=== PATIENT | male | born 1945 | race Hispanic/Latino ===

== ENCOUNTER 2017-09-28 15:10 | Inpatient (IN) | payer MEDICARE ==
[2017-09-28] MEDS ORDERED: TYLENOL PO PRN (15:18)
[2017-09-28] MEDS ORDERED: MILK OF MAGNESIA PO PRN (15:18)
[2017-09-28] MEDS ORDERED: DULCOLAX PR PRN (15:18)
[2017-09-28] MEDS ORDERED: ZOFRAN IV PRN (15:18)
[2017-09-28 18:17] LABS: Basophils % (Auto) 0.2 % (0.0-1.8); Eosinophils % (Auto) 0.1 % (0.0-4.3); Hemoglobin 14.7 gm/dl (11.8-15.2); Mean Corpuscular HGB Conc 34 % (32-34); Mean Corpuscular Hemoglobin 31 pg (28-32); Mean Corpuscular Volume 92 fl (84-94); Platelet Count 187 K/mm3 (140-440); Red Blood Count 4.67 M/mm3 (3.65-5.03); Red Cell Distribution Width 14.5 % (13.2-15.2); White Blood Count 8.9 K/mm3 (4.5-11.0)
[2017-09-28 18:26] LABS: INR 2.63 (0.87-1.13)
[2017-09-28 18:38] LABS: Calcium 8.4 mg/dL (8.4-10.2); Chloride 89.1 mmol/L (98-107); Magnesium 2.2 mg/dL (1.7-2.3); Potassium 5.3 mmol/L (3.6-5.0)
[2017-09-28 19:29] LABS: INR 2.58 (0.87-1.13)
[2017-09-28] MEDS ORDERED: COUMADIN PO SCH (20:00)
[2017-09-28] MEDS ORDERED: BETAPACE PO SCH (22:00)
[2017-09-28] MEDS: TOPROL XL PO SCH (23:02)
--- NOTE | 2017-09-29 02:21 | XRay Report ---
FINAL REPORT PROCEDURE: XR CHEST ROUTINE 2V TECHNIQUE: PA and lateral chest radiographs were obtained. CPT 18515 HISTORY: CHF COMPARISON: No prior studies are available for comparison. FINDINGS: Heart: Normal. Mediastinum/Vessels: Normal. Lungs/Pleural space: There are no infiltrates, effusions or pneumothoraces.. Bony thorax: No acute osseous abnormality. Other: IMPRESSION: There is no pulmonary edema. There is no acute cardiopulmonary abnormality..
[2017-09-29 05:41] LABS: Calcium 8.4 mg/dL (8.4-10.2); Chloride 88.6 mmol/L (98-107); INR 2.89 (0.87-1.13); Potassium 5.5 mmol/L (3.6-5.0)
[2017-09-29] MEDS ORDERED: LASIX IV SCH (06:00)
[2017-09-29] MEDS ORDERED: VERSED ONE (08:38)
[2017-09-29] MEDS ORDERED: DIPRIVAN 10 MG/ML IV ONE ×2 (08:38)
[2017-09-29] MEDS ORDERED: HURRICAINE ONE 20% TOPICAL SPRAY MM (08:44)
[2017-09-29] MEDS ORDERED: NACL 0.9% 1000 ML 1,000 ML ONE (09:01)
--- NOTE | 2017-09-29 09:19 | Anesthesia Consultation ---
Anesthesia Consult and Med Hx Date of service: 09/29/17 - Airway Anesthetic Teeth Evaluation: Good ROM Head & Neck: Adequate Mental/Hyoid Distance: Adequate Mallampati Class: Class II Intubation Access Assessment: Probably Good - Pulmonary Exam CTA: Yes - Cardiac Exam Cardiac Exam: RRR - Pre-Operative Health Status ASA Pre-Surgery Classification: ASA3 Proposed Anesthetic Plan: General - Pulmonary Hx Smoking: Yes (former) Hx Sleep Apnea: Yes - Cardiovascular System Hx Hypertension: Yes (EF 35% 2011) Hx Coronary Artery Disease: Yes Hx Heart Attack/AMI: Yes (X2) Hx Percutaneous Transluminal Coronary Angioplasty (PTCA): Yes (stents x 2) Hx Cardia Arrhythmia: Yes (AFIB) - Central Nervous System Hx Psychiatric Problems: No - Gastrointestinal Hx Gastroesophageal Reflux Disease: Yes - Endocrine Hx Renal Disease: Yes (hyponatremia, hyperkalemia) - Other Systems Hx Cancer: Yes (Right kidney tumor, S/P removal of tumor)
--- NOTE | 2017-09-29 09:21 | Anesthesia Day of Surgery ---
Anesthesia Day of Surgery - Day of Surgery Patient Examined: Yes Patient H&P Reviewed: Yes Patient is NPO: Yes
--- NOTE | 2017-09-29 09:32 | Progress Note ---
Assessment and Plan Acute on chronic systolic heart failure Ischemic cardiomyopathy, LVEF 20-25% CAD s/p remote PCI x 2 Persistent atrial fibrillation s/p IRON guided cardioversion Acute renal failure Hyponatremia Hyperkalemia Systemic Hypertension Recommendations: Decrease sotalol to 80 mg po q24 hour due to creatinine clearance Continue warfarin Continue IV diuresis Discontinue potassium replacement Monitor electrolytes Obtain renal consultation for his acute renal failure Anticipate discharge in am if sodium and potassium are doing better Subjective Date of service: 09/29/17 Principal diagnosis: Afib Interval history: Patient underwent a IRON guided cardioversion without complications Objective Vital Signs Temp Pulse Pulse Resp BP Pulse Ox 09/29/17 08:15 97.6 F 74 18 113/80 99 09/29/17 04:01 98.4 F 65 18 119/74 97 09/28/17 23:48 98.0 F 57 L 18 122/85 98 09/28/17 23:02 68 113/73 09/28/17 23:01 68 113/73 09/28/17 20:45 132 H 20 98 09/28/17 20:21 124 H 09/28/17 19:39 98.3 F 68 18 113/73 96 09/28/17 17:36 97.8 F 72 22 126/90 97 - Physical Examination General: Appears Well Neck: Positive: neck supple Cardiac: Positive: irregularly irregular Lungs: Positive: Rales Abdomen: Positive: Soft Extremities: Absent: edema - Labs and Meds Coagulation 09/28/17 09/28/17 09/29/17 Range/Units 17:16 18:40 04:42 PT 29.7 H 29.2 H 32.0 H (12.2-14.9) Sec. INR 2.63 H 2.58 H 2.89 H (0.87-1.13) CBC 09/28/17 Range/Units 17:16 WBC 8.9 (4.5-11.0) K/mm3 RBC 4.67 (3.65-5.03) M/mm3 Hgb 14.7 (11.8-15.2) gm/dl Hct 43.0 (35.5-45.6) % Plt Count 187 (140-440) K/mm3 Lymph # 1.2 (1.2-5.4) K/mm3 [place] # 0.9 H (0.0-0.8) K/mm3 Eos # 0.0 (0.0-0.4) K/mm3 Baso # 0.0 (0.0-0.1) K/mm3 Comprehensive Metabolic Panel 09/28/17 09/29/17 Range/Units 17:16 04:42 Sodium 131 L 128 L (137-145) mmol/L Potassium 5.3 H 5.5 H (3.6-5.0) mmol/L Chloride 89.1 L 88.6 L (98-107) mmol/L Carbon Dioxide 26 27 (22-30) mmol/L BUN 36 H 35 H (9-20) mg/dL Creatinine 1.7 H 1.7 H (0.8-1.5) mg/dL Glucose 88 85 (75-100) mg/dL Calcium 8.4 8.4 (8.4-10.2) mg/dL
[2017-09-29] MEDS ORDERED: PLAVIX PO SCH (10:00)
[2017-09-29] MEDS ORDERED: NON-FORMULARY (Ranitidine Hcl [Zantac 150 Mg Tab] 150 MG) PO SCH (10:00)
[2017-09-29] MEDS ORDERED: K-DUR PO SCH (10:00)
[2017-09-29] MEDS ORDERED: ZESTRIL PO SCH (10:00)
[2017-09-29] MEDS ORDERED: HURRICAINE ONE 20% TOPICAL SPRAY MM NR (10:00)
[2017-09-29] MEDS ORDERED: LASIX PO SCH (10:00)
[2017-09-29] MEDS ORDERED: NON-FORMULARY (Potassium Chloride [Potassium Chloride] 10 MEQ) PO SCH (10:00)
--- NOTE | 2017-09-29 10:15 | Procedure Note ---
INDICATION: Persistent atrial fibrillation with rapid ventricular rate. DESCRIPTION OF PROCEDURE: After obtaining written consent and the patient was deeply sedated with IV propofol in the presence of anesthesia staff. A IRON was performed excluding the presence of left atrial appendage thrombus. A 360 joule synchronized shock was administered with successful cardioversion from atrial fibrillation into normal sinus rhythm. No complications occurred during the procedure. IMPRESSION: Successful cardioversion from atrial fibrillation into normal sinus rhythm. RECOMMENDATION: Continue sotalol and warfarin. JOB# [id number] NIK/KIKE
[2017-09-29] MEDS ORDERED: NACL 0.9% 1000 ML 1,000 ML IV SCH (11:00)
[2017-09-29] MEDS: BETAPACE PO SCH (11:22)
[2017-09-29] MEDS: BABY ASPIRIN PO SCH (11:22)
[2017-09-29] MEDS: ZETIA PO SCH (11:23)
[2017-09-29] MEDS: PEPCID PO SCH (11:23)
[2017-09-29] MEDS ORDERED: D50W (25GM) Vial IV ONE (13:20)
[2017-09-29] MEDS ORDERED: LASIX IV NR (13:22)
--- NOTE | 2017-09-29 13:25 | Consultation ---
History of Present Illness - Reason for Consult Consult date: 09/29/17 acute renal failure, chronic renal failure - History of Present Illness patient with h/o HTN, CHF and Afib was admitted by Dr Bernardo for IRON with cardioversion, patient was noted to have abnromal kidney function and hyperkalemia and renal consult was requested. prior to today he was never told he has kidney disease, he denies NSAIDS he was given doxycycline course last week for bronchitis. he also mentioned for the last week he has been having difficulty to void. he has h/o partial nephroctomy [place] kidney tumor but he does not remember which kidney Past History Past Medical History: other (CHF, kidney tumor.) Medications and Allergies Allergies Allergy/AdvReac Type Severity Reaction Status Date / Time [id number]-Vni Reductase Allergy Unknown Verified 09/28/17 15:29 Inhibitor Home Medications Medication Instructions Recorded Confirmed Last Taken Type Clopidogrel [Plavix] 75 mg PO QDAY 09/28/17 09/28/17 Unknown History Ezetimibe [Zetia] 10 mg PO QDAY 09/28/17 09/28/17 Unknown History Furosemide [Lasix TAB] 40 mg PO QDAY 09/28/17 09/28/17 Unknown History Metoprolol Succinate [Toprol Xl] 25 mg PO QDAY 09/28/17 09/28/17 Unknown History Potassium Chloride 10 meq PO QDAY 09/28/17 09/28/17 Unknown History Ranitidine HCl [Zantac 150 MG TAB] 150 mg PO QDAY 09/28/17 09/28/17 Unknown History Warfarin Sodium [Coumadin] 5 mg PO QDAY 09/28/17 09/28/17 Unknown History Active Meds: Active Medications Acetaminophen (Tylenol) 650 mg PO Q4H PRN PRN Reason: Pain MILD(1-3)/Fever >100.5/THORPE Aspirin (Baby Aspirin) 81 mg PO QDAY [facility] Last Admin: 09/29/17 11:22 Dose: Not Given Benzocaine (Hurricaine One 20% Topical [place]) 3 spray MM PREOP NR Stop: 09/29/17 23:59 Last Admin: 09/29/17 09:03 Dose: 3 spray Bisacodyl (Dulcolax) 10 mg DC QDAY PRN PRN Reason: Constipation unrelieved by MOM Ezetimibe (Zetia) 10 mg PO QDAY [facility] Last Admin: 12/22/17 11:23 Dose: Not Given Famotidine (Pepcid) 10 mg PO DAILY [facility] Last Admin: 09/29/17 11:23 Dose: Not Given Furosemide (Lasix) 40 mg PO QDAY [facility] Last Admin: 09/29/17 11:22 Dose: Not Given Sodium Chloride (Nacl 0.9% 1000 Ml) 1,000 mls @ 42 mls/hr IV DIRECT [facility] Last Admin: 09/29/17 09:03 Dose: 42 mls/hr Lisinopril (Zestril) 20 mg PO QDAY [facility] Last Admin: 09/29/17 11:23 Dose: Not Given Magnesium Hydroxide (Milk Of Magnesia) 30 ml PO Q4H PRN PRN Reason: Constipation Metoprolol Succinate (Toprol Xl) 25 mg PO QDAY@2200 [facility] Last Admin: 09/28/17 23:02 Dose: 25 mg Ondansetron HCl (Zofran) 4 mg IV Q8H PRN PRN Reason: N/V unrelieved by Reglan Sotalol HCl (Betapace) 80 mg PO Q24H [facility] Last Admin: 09/29/17 11:22 Dose: Not Given Warfarin Sodium (Coumadin) 5 mg PO MoWeFr@1700 [facility] PRN Reason: Protocol Warfarin Sodium (Coumadin Pharmacy To Dose) 1 each PO PKCONSULT [facility] PRN Reason: Protocol Warfarin Sodium (Coumadin) 2.5 mg PO SuTuThSa@1700 [facility] Last Admin: 09/28/17 20:40 Dose: 2.5 mg Review of Systems All systems: negative (weakness, SOB) Exam - Vital Signs Vital signs: Vital Signs Temp Pulse Resp BP Pulse Ox 97.8 F 72 22 126/90 97 09/28/17 17:36 09/28/17 17:36 09/28/17 17:36 09/28/17 17:36 09/28/17 17:36 - General Appearance General appearance: well-developed, well-nourished, appears stated age EENT: ATNC, PERRL, mucous membranes moist Neck: Present: neck supple Respiratory: Clear to Ascultation Heart: regular, S1S2 Gastrointestinal: Present: normoactive bowel sounds. Absent: tenderness, distended Integumentary: no rash, warm and dry Neurologic: no focal deficit, no asterixis, alert and oriented x3 Musculoskeletal: Present: other (trace pitting edema in BLE) Psychiatric: mood/affect appropriate, cooperative Results - Lab Results 09/28/17 17:16 09/29/17 04:42 Most recent lab results Calcium 8.4 mg/dL (8.4-10.2) 09/29/17 04:42 Magnesium 2.20 mg/dL (1.7-2.3) 09/28/17 17:16 Assessment and Plan Acute renal failure unknown baseline, worsening kidney function could be secondary cardiorenal syndrome (EF ~25%) AIN due to recent antibiotic use and urinary retention will order renla US with post void residual will order urine lytes, protein and eos. secondary GN work up depends on urine studies results renal dose med strict I&O renal diet Hyperkalemia Kcl supplement was stopped will switch oral lasix to IV will hold lisinopril (if Ok with cardiology) will order Iv insulin with D50W and repeat BMP ~ 1800 Afib with RVR s/p IRON and cardiversion on Sotalol Acute on chronic CHF IV lasix as above will hold lisinopril for hypotension, worsening kidney function and hypokalemia per cardiology
[2017-09-29] MEDS ORDERED: D50W (25GM) Syringe IV NR (14:00)
[2017-09-29] MEDS ORDERED: COUMADIN PO SCH (17:00)
--- NOTE | 2017-09-29 18:33 | Ultrasound Report ---
FINAL REPORT EXAM: US BLADDER RESIDUAL HISTORY: DIFFICULTY VOIDING TECHNIQUE: Ultrasound examination of the urinary bladder PRIORS: Renal ultrasound 09/29/2017 FINDINGS: No focal urinary bladder lesion. Prevoid volume is 325 cc and postvoid volume is 76 cc. IMPRESSION: Urinary bladder postvoid residual is 76 cc
[2017-09-29 18:55] LABS: Calcium 8.2 mg/dL (8.4-10.2); Chloride 89.7 mmol/L (98-107); Potassium 5.3 mmol/L (3.6-5.0)
[2017-09-29 19:24] LABS: Bilirubin,Urine NEG (Negative); Blood,Urine NEG (Negative); Ketones,Urine NEG (Negative); Leukocyte Esterase,Urine NEG (Negative); Mucus,Urine FEW /HPF; Nitrite,Urine NEG (Negative); Protein,Urine <15 mg/dL mg/dL (Negative); Urobilinogen,Urine < 2.0 mg/dL (<2.0); WBC,Urine < 1.0 /HPF (0.0-6.0)
[2017-09-29 19:28] LABS: Sodium, Urine 23 mmol/L
[2017-09-29] MEDS: TOPROL XL PO SCH (22:17)
[2017-09-30 00:51] LABS: Calcium 8.3 mg/dL (8.4-10.2); Chloride 92.7 mmol/L (98-107); Potassium 5.4 mmol/L (3.6-5.0)
[2017-09-30 06:04] LABS: Basophils % (Auto) 0.2 % (0.0-1.8); Eosinophils % (Auto) 0.8 % (0.0-4.3); Hematocrit 43.5 % (35.5-45.6); Hemoglobin 14.5 gm/dl (11.8-15.2); Mean Corpuscular HGB Conc 33 % (32-34); Mean Corpuscular Hemoglobin 31 pg (28-32); Mean Corpuscular Volume 93 fl (84-94); Platelet Count 165 K/mm3 (140-440); Red Blood Count 4.71 M/mm3 (3.65-5.03); Red Cell Distribution Width 14.9 % (13.2-15.2); White Blood Count 9.4 K/mm3 (4.5-11.0)
[2017-09-30 06:24] LABS: Calcium 7.9 mg/dL (8.4-10.2); Chloride 92.5 mmol/L (98-107); Phosphorous 3.6 mg/dL (2.5-4.5)
[2017-09-30 06:30] LABS: INR 5.46 (0.87-1.13)
[2017-09-30 06:38] LABS: Potassium 5.6 mmol/L (3.6-5.0)
[2017-09-30 07:46] LABS: INR 3.39 (0.87-1.13)
--- NOTE | 2017-09-30 09:30 | Progress Note ---
Assessment and Plan Acute on chronic systolic heart failure improved class II symptoms and Ischemic cardiomyopathy, LVEF 20-25% CAD s/p remote PCI x 2 Persistent atrial fibrillation s/p IRON guided cardioversion Acute renal failure Hyponatremia Hyperkalemia persistent patient currently not on any LEE inhibitor Systemic Hypertension Recommendations: Continue sotalol at 80 mg po q24 hour due to creatinine clearance Continue warfarin Continue IV diuresis Monitor electrolytes Obtain renal consultation for his acute renal failure DC home once potassium is corrected Subjective Date of service: 09/30/17 Principal diagnosis: Afib Interval history: No eventgs overnight Remains in NSR Objective Vital Signs Temp Pulse Pulse Pulse Pulse Resp Resp 09/30/17 08:34 98.4 F 69 20 09/30/17 07:51 72 09/30/17 04:21 97.9 F 63 18 09/30/17 00:08 97.8 F 68 18 09/29/17 22:17 64 09/29/17 22:15 68 68 20 09/29/17 19:56 97.2 F L 64 18 09/29/17 19:54 66 09/29/17 16:55 97.4 F L 67 18 09/29/17 11:47 97.3 F L 63 18 09/29/17 11:23 74 09/29/17 11:22 74 09/29/17 10:00 74 18 09/29/17 09:50 56 L 19 09/29/17 09:35 56 L 21 BP BP BP Pulse Ox Pulse Ox 09/30/17 08:34 123/73 95 09/30/17 07:51 09/30/17 04:21 127/69 95 09/30/17 00:08 121/76 97 09/29/17 22:17 117/67 09/29/17 22:15 09/29/17 19:56 117/67 93 09/29/17 19:54 09/29/17 16:55 120/68 97 09/29/17 11:47 126/83 96 09/29/17 11:23 113/80 09/29/17 11:22 113/80 09/29/17 10:00 99 09/29/17 09:50 105/58 97 09/29/17 09:35 105/64 98 - Physical Examination Narrative exam: Vitals reviewed , moderately obese GEN: No acute distress noted HEENT: Carotids 2+ NECK: Supple CVS: S1 and S2 heard no significant murmur or gallop noted LUNGS/CHEST: Normal auscultation ABD: Soft nontender Extremities: No edema noted normal color NEURO: Alert moves all all 4 extremities PSY: Stable General: Appears Well Neck: Positive: neck supple Abdomen: Positive: Soft Extremities: Absent: edema - Labs and Meds Coagulation 09/30/17 09/30/17 Range/Units 04:00 06:57 PT 53.3 H 36.4 H (12.2-14.9) Sec. INR 5.46 H* 3.39 H (0.87-1.13) CBC 09/30/17 Range/Units 04:07 WBC 9.4 (4.5-11.0) K/mm3 RBC 4.71 (3.65-5.03) M/mm3 Hgb 14.5 (11.8-15.2) gm/dl Hct 43.5 (35.5-45.6) % Plt Count 165 (140-440) K/mm3 Lymph # 1.4 (1.2-5.4) K/mm3 [place] # 0.9 H (0.0-0.8) K/mm3 Eos # 0.1 (0.0-0.4) K/mm3 Baso # 0.0 (0.0-0.1) K/mm3 Comprehensive Metabolic Panel 09/29/17 09/30/17 09/30/17 Range/Units 17:38 00:08 04:07 Sodium 132 L 134 L 131 L (137-145) mmol/L Potassium 5.3 H 5.4 H 5.6 H (3.6-5.0) mmol/L Chloride 89.7 L 92.7 L 92.5 L (98-107) mmol/L Carbon Dioxide 24 29 25 (22-30) mmol/L BUN 34 H 33 H 32 H (9-20) mg/dL Creatinine 1.5 1.7 H 1.3 (0.8-1.5) mg/dL Glucose 129 H 87 64 L (75-100) mg/dL Calcium 8.2 L 8.3 L 7.9 L (8.4-10.2) mg/dL
[2017-09-30] MEDS: BETAPACE PO SCH (10:23)
[2017-09-30] MEDS: ZETIA PO SCH (10:23)
[2017-09-30] MEDS: PEPCID PO SCH (10:23)
[2017-09-30] MEDS: BABY ASPIRIN PO SCH (10:23)
[2017-09-30] MEDS ORDERED: COUMADIN NO DOSE TODAY PO ONE (17:00)
--- NOTE | 2017-09-30 17:17 | Progress Note ---
Assessment and Plan - Patient Problems (1) Atrial fibrillation Current Visit: Yes Status: Acute Plan to address problem: Cardiology on board, s/p IRON cardioversion, now sinus rhythm, on sotalol and warfarin (2) Acute renal failure (ARF) Current Visit: Yes Status: Acute Plan to address problem: Renal function reviewed, SCr level decreased to 1.3 today, yesterday's SCr level was 1.5 Renally dose medications Ordered insulin 5 units IV, 2 amps D50, modified cardiac diet to also reflect low potassium content, repeat potassium level at 2100 Obtain daily weight Renal ultrasound pending Lisinopril on hold Strict intake and output Finch Catheter: No Renal plan discussed with Dr Lo Continue supportive therapy (3) Hyperkalemia Current Visit: Yes Status: Acute Plan to address problem: Ordered Insulin 5 units IV, 2 amps of D50 Modified cardiac diet to also reflect low potassium content Repeat potassium level at 2100 (4) Acute on chronic congestive heart failure Current Visit: Yes Status: Acute Plan to address problem: Cardiology on board, LVEF 20-25% Lisinopril on hold for now As per cardiology management Subjective Date of service: 09/30/17 Principal diagnosis: Afib Interval history: Patient reports feeling ok at this time, no family at bedside, but was on speaker phone during my examination. Objective - Vital Signs Vital signs: Vital Signs - 12hr 09/30/17 09/30/17 09/30/17 07:51 08:34 12:18 Temperature 98.4 F 97.5 F L Pulse Rate 72 69 73 Respiratory 20 20 Rate Blood Pressure 123/73 129/73 [Right] O2 Sat by Pulse 95 97 Oximetry 09/30/17 16:53 Temperature 98.4 F Pulse Rate 68 Respiratory 20 Rate Blood Pressure 112/74 [Right] O2 Sat by Pulse Oximetry - General Appearance General appearance: well-nourished (no acute distress) EENT: ATNC Neck: no JVD Respiratory: Present: Other (Lung sounds decreased bilaterally, unlabored) Cardiology: regular, S1S2 Gastrointestinal: normoactive bowel sounds, no tenderness Integumentary: warm and dry Neurologic: alert and oriented x3 Musculoskeletal: other (no edema to both lower extremities) Psychiatric: mood/affect appropriate, cooperative - Lab 09/30/17 04:07 09/30/17 04:07 Most recent lab results Calcium 7.9 mg/dL (8.4-10.2) L 09/30/17 04:07 Phosphorus 3.60 mg/dL (2.5-4.5) 09/30/17 04:07 Magnesium 2.20 mg/dL (1.7-2.3) 09/28/17 17:16 Urine Creatinine 104.9 mg/dL (0.1-20.0) H 09/29/17 19:10 Urine Sodium 23 mmol/L 09/29/17 19:10 Urine Total Protein 15 mg/dL (5-11.8) H 09/29/17 19:10
[2017-09-30] MEDS ORDERED: D50W (25GM) Syringe IV ONE ×3 (17:19→20:30)
[2017-09-30] MEDS ORDERED: D50W (25GM) Vial IV ONE (17:27)
[2017-09-30] MEDS: TOPROL XL PO SCH (22:00)
[2017-10-01 06:51] LABS: Basophils % (Auto) 0.4 % (0.0-1.8); Eosinophils % (Auto) 0.8 % (0.0-4.3); Hematocrit 43.2 % (35.5-45.6); Hemoglobin 14.6 gm/dl (11.8-15.2); Mean Corpuscular HGB Conc 34 % (32-34); Mean Corpuscular Hemoglobin 32 pg (28-32); Mean Corpuscular Volume 93 fl (84-94); Platelet Count 163 K/mm3 (140-440); Red Blood Count 4.63 M/mm3 (3.65-5.03); Red Cell Distribution Width 14.7 % (13.2-15.2)
[2017-10-01 07:03] LABS: INR 3.36 (0.87-1.13)
[2017-10-01 07:09] LABS: Calcium 8.2 mg/dL (8.4-10.2); Chloride 94.5 mmol/L (98-107); Phosphorous 3.2 mg/dL (2.5-4.5); Potassium 4.3 mmol/L (3.6-5.0)
[2017-10-01 08:46] VITALS: BP 126/65
--- NOTE | 2017-10-01 09:30 | Discharge Summary ---
Providers - Providers Date of Admission: 09/28/17 16:31 Date of discharge: 10/01/17 Attending physician: ISAIAS LAUGHLIN 09/29/17 09:33 Consult to Physician [CONS] Routine Consulting Provider: SANDEE AGUILERA Reason For Exam: Acute renal failure Place consult to:: renal Notified:: yes Was contact made?: Yes If yes, spoke with:: Dr Aguilera Time called:: 10:14 Primary care physician: YOBANY GRANADOS Hospitalization Reason for admission: atrial fibrillation with RVR Condition: Fair Pertinent studies: IRON guided cardioversion Procedures: IRON guided cardioversion Hospital course: Patient is a 72-year-old male with a history of cardiomyopathy. Patient was evaluated in the clinic by Dr. Pinzon and found to have new onset atrial fibrillation that was contributing to his shortness of breath. He was brought into the hospital underwent a IRON guided cardioversion. Patient also was noted to be in new onset renal failure. Hence patient was admitted to the hospital nephrology was consulted. Patient also had elevated potassium and his lisinopril was held. With gentle IV hydration and discontinuation of LEE inhibitor and treatment of hyperkalemia patient improved. His potassium was normal and renal function was remarkably improved. Patient in the interim had been initiated on sotalol. His EKG shows mildly prolonged QT and patient is in the low was sotalol. Patient to continue the same and follow-up as an outpatient in 3-4 days. Patient also to follow-up with nephrology in 3-4 days. Disposition: TO HOME OR SELFCARE - Discharge Diagnoses (1) Atrial fibrillation Status: Acute Core Measure Documentation - Palliative Care Palliative Care/ Comfort Measures: Not Applicable - Core Measures Any of the following diagnoses?: heart failure - Heart Failure Discharge Requirements LEE/ARB for LVSD if EF <40%: No (due to acute renal failure and hyperkalemia) Reason for no LEE/ARB: Hyperkalemia Beta ronn at discharge: Yes Exam - Physical Exam Narrative exam: Vitals reviewed , moderately obese GEN: No acute distress noted HEENT: Carotids 2+ NECK: Supple CVS: S1 and S2 heard no significant murmur or gallop noted LUNGS/CHEST: Normal auscultation ABD: Soft nontender Extremities: No edema noted normal color NEURO: Alert moves all all 4 extremities PSY: Stable - Constitutional Vitals: Temp Pulse Resp BP Pulse Ox 97.9 F 63 18 126/65 97 10/01/17 08:44 10/01/17 08:44 10/01/17 08:44 10/01/17 08:44 10/01/17 08:44 Plan Diet: low cholesterol, low salt Wound: other (none required) Special Instructions: restrict fluid intake to (1.5 L) Follow up with: YOBANY GRANADOS MD [Primary Care Provider] - 7 Days Forms: Warfarin Discharge Instruction Prescriptions: Sotalol [Betapace] 80 mg PO Q24H #30 tablet
[2017-10-01] MEDS: ZETIA PO SCH (10:34)
[2017-10-01] MEDS: BETAPACE PO SCH (10:34)
[2017-10-01] MEDS: PEPCID PO SCH (10:34)
[2017-10-01] MEDS: BABY ASPIRIN PO SCH (10:34)
[2017-10-01] MEDS ORDERED: COUMADIN NO DOSE TODAY PO ONE (17:00)
[2017-10-01] MEDS ORDERED: COUMADIN PO SCH (17:00)
--- NOTE | 2017-10-02 14:39 | Ultrasound Report ---
Renal ultrasound and urinary bladder residual: Patient with prior right renal cancer of the inferior pole with surgical intervention. The right kidney currently demonstrates a patent 9.3 cm. The renal margins are sharp and the echo pattern of the right kidney is unremarkable. The left renal length is 9.9 cm. In the inferior pole a 13 mm sized area of mild echogenicity is noted at the periphery with questionable mild extension beyond the renal contour. The echo pattern of the kidney is otherwise unremarkable. The prevoid urinary bladder appears normal and demonstrates a volume of 325 mL. The post void volume is approximately 76 mL. Impressions: 1. Unremarkable right kidney. 2. Nonspecific echodensity possibly representing a mass in the inferior left kidney. 3. Mild post void bladder residual.
== END 2017-10-01 11:18 | disposition home or self-care (01) | DRG 682 ==
LOC: 4A 15:10 → UNDOADMIN 15:10 → 4A 16:31
PROVIDERS: ADMIT Internal Medicine; ATTEND Internal Medicine
PROC: 5A2204Z Restoration of Cardiac Rhythm, Single (ICD-10-PCS; principal; 2017-09-29)
DX: N17.9 Acute kidney failure, unspecified (principal); I50.23 Acute on chronic systolic (congestive) heart failure; E87.1 Hypo-osmolality and hyponatremia; I13.0 Hypertensive heart and chronic kidney disease with heart failure and stage 1 through stage 4 chronic kidney disease, or unspecified chronic kidney disease; I48.91 Unspecified atrial fibrillation; Z88.8 Allergy status to other drugs, medicaments and biological substances; Z87.891 Personal history of nicotine dependence; I25.2 Old myocardial infarction; I25.10 Atherosclerotic heart disease of native coronary artery without angina pectoris; I25.5 Ischemic cardiomyopathy; N18.9 Chronic kidney disease, unspecified; E87.5 Hyperkalemia
CPT/HCPCS: 36415; 71020; 76770; 76857; 80048; 81001; 82570; 82962; 83735; 84100; 84132; 84156; 84300; 84443; 84520; 85025; 85610; 89050; 93005; 93010; 93312; 93320; 93325; J1815; J1940; J2250; J2704; J7030

== ENCOUNTER 2017-10-30 08:30 | Outpatient (CLI) | payer MEDICARE ==
--- NOTE | 2017-10-30 14:54 | Cat Scan Report ---
CT chest, abdomen, and pelvis with contrast: History of right renal cancer with partial nephrectomy. Following IV and oral administration of contrast agents transverse images were obtained through the chest to the ischium with coronal and sagittal reformatted images. Comparison to abdominal CT made to exam in June 2016. No christelle, mediastinal, or axillary adenopathy identified. The pulmonary vessels are well-opacified with no obvious filling defects noted. The thoracic aorta was not opacified during imaging but appears to be normal in size and contour. No opacification of the cardiac chambers. No pulmonary nodules identified. Focal linear areas of scarring identified at the left lung base unchanged 2016. There is moderate elevation of the left the opacified small bowel and colon appear generally unremarkable as is the mesentery. hemidiaphragm also unchanged. No abdominal solid organ lesion and the gallbladder is unremarkable as is the stomach. The previously described celiac lymph node is essentially unchanged in size if not slightly smaller. No new adenopathy. Images the left kidney are unremarkable. Scar formation with probable surgical changes noted at the inferior pole of the right kidney. There may be minimal thickening of the bladder wall unchanged prior exam. The partially opacified bowel and mesentery appears grossly normal. Small bilateral inguinal hernias are noted. Diffuse degenerative spondylosis and multiple level disc disease is present at various levels throughout the thoracic and lumbar spine. Impressions: 1. No evidence of metastatic disease in the thoracic exam. Stable left lower lobe scarring. 2. Findings consistent with partial right nephrectomy at the inferior pole. No evidence of recurrence. 3. Stable celiac node.
== END 2017-10-30 08:31 | disposition home or self-care (01) ==
LOC: SPVIMAG 08:30
PROVIDERS: ATTEND Urology
DX: C64.1 Malignant neoplasm of right kidney, except renal pelvis (principal); J98.4 Other disorders of lung; K40.90 Unilateral inguinal hernia, without obstruction or gangrene, not specified as recurrent; M47.894 Other spondylosis, thoracic region; M47.896 Other spondylosis, lumbar region
CPT/HCPCS: 71260; 74177; Q9967

== ENCOUNTER 2017-11-30 07:36 | Day surgery (SDC) | payer MEDICARE ==
[2017-11-30 08:24] LABS: Basophils % (Auto) 0.8 % (0.0-1.8); Eosinophils # (Auto) 0.1 K/mm3 (0.0-0.4); Eosinophils % (Auto) 1.4 % (0.0-4.3); Hemoglobin 13.7 gm/dl (11.8-15.2); Lymphocytes # (Auto) 1.5 K/mm3 (1.2-5.4); Lymphocytes % (Auto) 30.7 % (13.4-35.0); Mean Corpuscular HGB Conc 33 % (32-34); Mean Corpuscular Hemoglobin 31 pg (28-32); Mean Corpuscular Volume 92 fl (84-94); Monocytes # (Auto) 0.6 K/mm3 (0.0-0.8); Monocytes % (Auto) 13.2 % (0.0-7.3); Platelet Count 182 K/mm3 (140-440); Red Blood Count 4.47 M/mm3 (3.65-5.03); Red Cell Distribution Width 15.3 % (13.2-15.2)
[2017-11-30 08:37] LABS: BUN/Creatinine Ratio 25; Blood Urea Nitrogen 25 mg/dL (9-20); Calcium 8.3 mg/dL (8.4-10.2); Hemolysis Index 13
[2017-11-30 08:55] LABS: INR 1.07 (0.87-1.13)
[2017-11-30] MEDS ORDERED: NACL 0.9% 500 ML 500 ML IV SCH (09:00)
[2017-11-30] MEDS ORDERED: HEPARIN/NS 5000 UNIT/500ML(CATH LAB) 1,000 ML IR ONE (10:42)
[2017-11-30] MEDS ORDERED: XYLOCAINE 2% INFILTRATI ONE (10:44)
[2017-11-30] MEDS ORDERED: HEPARIN 10,000 UNITS/10 ML ONE (11:01)
[2017-11-30] MEDS ORDERED: CALAN ONE (11:02)
[2017-11-30] MEDS ORDERED: SUBLIMAZE ONE (11:02)
[2017-11-30] MEDS ORDERED: VERSED ONE (11:02)
[2017-11-30] MEDS ORDERED: NITROGLYCERIN SYRINGE 3 ML ONE (11:03)
--- NOTE | 2017-11-30 11:40 | Discharge Summary ---
Short Stay Discharge Plan Activity: advance as tolerated Weight Bearing Status: Full Weight Bearing Diet: low fat, low cholesterol, low salt Wound: keep clean and dry Special Instructions: no heavy lifting (3 days) Follow up with: YOBANY GRANADOS MD [Primary Care Provider] - 7 Days MARISA BOWERS MD [Staff Physician] - 7 Days
--- NOTE | 2017-11-30 11:47 | Cardiac Catherization Report ---
REASON FOR PROCEDURE: Coronary artery disease and abnormal thallium stress test. PROCEDURE: The patient was prepped and draped in a sterile fashion after informed consent. Right radial cath site was prepped and draped after a negative Haris's test. The right radial artery was entered using Seldinger technique followed by placement of a 6-[place] hydrophilic sheath. Routine radial cocktail was administered via the sheath. A #3.5 left Angel catheter was used for left coronary angiography. A #4 right Angel was used for right coronary angiography. A pigtail catheter was used for left ventricle angiography. The catheters were removed, sheath removed, and hemostasis achieved using manual compression. The patient was returned to the postprocedure unit in stable condition. There were no complications. FINDINGS: HEMODYNAMICS: Left ventricular end-diastolic pressure was 16. Ascending aortic pressure 130/71. There was no significant pressure gradient on pullback across the aortic valve. CORONARY ANGIOGRAPHY: There was mild diffuse coronary calcification. The left main coronary artery contained mild irregularities. The left anterior descending artery contained mild luminal irregularities in its mid segment, after a large proximal diagonal branch. Otherwise, no significant lesions were noted in the LAD or diagonal branches. The circumflex artery was notable for a stent in its mid segments. The stented segment was widely patent with no significant instent restenosis. Otherwise, mild luminal irregularities were noted in the rest of the circumflex system. The right coronary artery was dominant. This vessel contained moderate ectasia of its proximal to mid segments. Within the proximal to mid segment, there was a stent. The stented segment and this vessel was also widely patent with no significant instent restenosis. Otherwise, mild luminal irregularities are noted in the rest of the right coronary system. The left ventricle was at least moderately dilated. There was severe left ventricular systolic dysfunction with diffuse hypokinesis, ejection fraction estimated at 20-25%. CONCLUSION: 1. Widely patent circumflex artery stent. 2. Widely patent right coronary artery stent. 3. Otherwise, no significant residual coronary artery disease. 4. Dilated cardiomyopathy, severe left ventricular systolic dysfunction, ejection fraction 20-25%. RECOMMENDATION: Medical therapy and risk factor modification. [facility]# [id number] CA/NTS
[2017-11-30] MEDS ORDERED: NACL 0.9% 1000 ML 1,000 ML IV SCH (12:00)
[2017-11-30 14:55] VITALS: BP 116/74
== END 2017-11-30 15:10 | disposition home or self-care (01) ==
LOC: CATHLABREC 07:36
PROVIDERS: ATTEND Internal Medicine Cardiovascular Disease
DX: I25.10 Atherosclerotic heart disease of native coronary artery without angina pectoris (principal); I25.2 Old myocardial infarction; I42.0 Dilated cardiomyopathy; I10 Essential (primary) hypertension; I48.0 Paroxysmal atrial fibrillation; G47.33 Obstructive sleep apnea (adult) (pediatric); K21.9 Gastro-esophageal reflux disease without esophagitis; E78.5 Hyperlipidemia, unspecified; Z95.5 Presence of coronary angioplasty implant and graft; Z79.01 Long term (current) use of anticoagulants; Z88.0 Allergy status to penicillin; Z88.8 Allergy status to other drugs, medicaments and biological substances; Z98.890 Other specified postprocedural states; Z82.49 Family history of ischemic heart disease and other diseases of the circulatory system
CPT/HCPCS: 36415; 80048; 85025; 85610; 85730; 93005; 93010; 93458; 99156; C1894; J1644; J2250; J3010; J7040; Q9967

== ENCOUNTER 2018-02-07 07:31 | Day surgery (SDC) | payer MEDICARE ==
[2018-02-07] MEDS ORDERED: NACL 0.9% 1000 ML 1,000 ML IV SCH (09:00)
[2018-02-07] MEDS ORDERED: HURRICAINE ONE 20% TOPICAL SPRAY MM NR (09:00)
[2018-02-07 09:03] VITALS: BP 99/52
[2018-02-07 09:03] LABS: Basophils # (Auto) 0.1 K/mm3 (0.0-0.1); Eosinophils % (Auto) 0.9 % (0.0-4.3); Hematocrit 40.7 % (35.5-45.6); Hemoglobin 13.2 gm/dl (11.8-15.2); Lymphocytes # (Auto) 1.2 K/mm3 (1.2-5.4); Mean Corpuscular HGB Conc 33 % (32-34); Mean Corpuscular Hemoglobin 30 pg (28-32); Mean Corpuscular Volume 93 fl (84-94); Monocytes # (Auto) 0.6 K/mm3 (0.0-0.8); Monocytes % (Auto) 11.4 % (0.0-7.3); Platelet Count 191 K/mm3 (140-440); Red Blood Count 4.39 M/mm3 (3.65-5.03); Red Cell Distribution Width 15.1 % (13.2-15.2)
[2018-02-07 09:13] LABS: INR 2.59 (0.87-1.13)
[2018-02-07 09:14] LABS: Partial Thromboplastin Time 36.4 Sec. (24.2-36.6)
[2018-02-07 09:17] LABS: Calcium 8.6 mg/dL (8.4-10.2)
== END 2018-02-07 09:39 | disposition home or self-care (01) ==
LOC: CATHLABREC 07:31
PROVIDERS: ATTEND Internal Medicine Cardiovascular Disease
DX: I48.0 Paroxysmal atrial fibrillation (principal); I42.0 Dilated cardiomyopathy; I11.0 Hypertensive heart disease with heart failure; I50.21 Acute systolic (congestive) heart failure; K21.9 Gastro-esophageal reflux disease without esophagitis; G47.30 Sleep apnea, unspecified; I25.2 Old myocardial infarction; Z95.5 Presence of coronary angioplasty implant and graft; Z82.49 Family history of ischemic heart disease and other diseases of the circulatory system; Z53.8 Procedure and treatment not carried out for other reasons
CPT/HCPCS: 36415; 80048; 85025; 85610; 85730; J7030

== ENCOUNTER 2018-12-28 07:45 | Outpatient (CLI) | payer MEDICARE ==
--- NOTE | 2018-12-28 10:32 | Cat Scan Report ---
CT ABDOMEN WITH AND WITHOUT CONTRAST: HISTORY: Right renal cancer, renal mass. COMPARISON: 10/30/17. TECHNIQUE: Helical CT in 1.25mm intervals before and after IV contrast. Sagittal and coronal reconstructions. FINDINGS: Lung bases: Mild cardiomegaly. 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 No pulmonary nodule or mass. Liver: Normal. Biliary system: There are a few tiny calcified gallstones in the neck of the gallbladder. No biliary dilatation or inflammation. Pancreas: Normal. Spleen: Normal. Kidneys/ureters/bladder: Surgical changes consistent with partial nephrectomy at the inferior pole of the right kidney are again identified. 4 new and suspicious renal masses are identified on today's exam. A 1.5 cm mass is identified in the posterior midpole of the right kidney. A 1.7 cm mass is noted in the anterior midpole of the right kidney. A 1.2 cm mass is identified in the superior left kidney. A 2.4 cm mass is identified in the inferior left kidney. These masses are slightly hypervascular with a early clearance of the contrast agent on delayed images. No cavitation or calcifications. There is no evidence for obstruction, calculus or cystic disease. The visualized ureters are unremarkable. Adrenal glands: Normal. Aorta: Mild distal calcifications. No stenosis or aneurysm. Intestines: Within normal limits given oral contrast was administered. Appendix: Not confidently identified. Ascites: None. Adenopathy: No abdominal or retroperitoneal adenopathy is identified. Musculoskeletal: Intact. There is moderate thoracolumbar spondylosis. No fracture or suspicious bony lesion. IMPRESSION: At least 4 new suspicious renal masses are identified since 10/30/17 exam. There are 2 masses in the right kidney and 2 masses in the left kidney. Renal neoplasms are suspected until proven otherwise. Renal cell carcinoma or renal lymphoma should be considered. Please see above.
== END 2018-12-28 07:46 | disposition home or self-care (01) ==
LOC: CT 07:45
PROVIDERS: ATTEND Urology
DX: C64.1 Malignant neoplasm of right kidney, except renal pelvis (principal); I11.0 Hypertensive heart disease with heart failure; I50.9 Heart failure, unspecified; K21.9 Gastro-esophageal reflux disease without esophagitis; Z90.89 Acquired absence of other organs; Z87.891 Personal history of nicotine dependence
CPT/HCPCS: 36415; 74170; 82565; 84520; Q9967